=== PATIENT | female | born 1930 | race Caucasian/White ===

== ENCOUNTER 2017-04-15 12:29 | Inpatient (IN) | payer MEDICARE, BC ==
[~2017-04-15] VITALS: Ht 167.6 cm; Wt 70.0 kg
[2017-04-15] VITALS (7 sets, daily range): BP systolic 118–171; BP diastolic 60–91; PULSE 88–106; RESP 15–23; TEMP 97.3–98.1; O2SAT 84–95
[2017-04-15] MEDS ORDERED: diphenhydrAMINE HCL 50 MG/ML VIAL IVP ONE (13:00)
[2017-04-15] MEDS ORDERED: methylPREDNISolone SOD SUCC 125 MG/2 ML VIAL IV PUSH ONE (13:00)
[2017-04-15] MEDS ORDERED: FAMOTIDINE 20 MG/2 ML VIAL IV PUSH ONE (13:00)
[2017-04-15] MEDS ORDERED: SODIUM CHLORIDE 0.9% FLUSH 10 ML FLUSH IV FLUSH PRN ×2 (13:00→14:45)
[2017-04-15] MEDS ORDERED: BENA40TA PO (13:05)
[2017-04-15] MEDS ORDERED: ASPI81CH CHEW (13:05)
[2017-04-15] MEDS ORDERED: ACTO15TA11 PO (13:05)
[2017-04-15] MEDS ORDERED: CALC1TAB87 PO (13:11)
[2017-04-15] MEDS ORDERED: HYDR12.57 PO (13:11)
[2017-04-15] MEDS ORDERED: MULTTAB67 PO (13:11)
[2017-04-15] MEDS ORDERED: LIPI20TA PO (13:11)
[2017-04-15] MEDS ORDERED: OCUVTAB4 PO (13:11)
[2017-04-15] MEDS ORDERED: VITA250C3 CHEW (13:11)
[2017-04-15] MEDS ORDERED: SODIUM CHLORIDE 0.9% FLUSH 10 ML FLUSH IVF PRN (13:15)
[2017-04-15] MEDS ORDERED: EPINEPHrine HCL (1:1000) 1 MG/ML VIAL IM ONE (13:15)
[2017-04-15 13:30] LABS: AUTOMATED NEUTROPHIL # 3.3 TH/MM3 (1.8-7.7); BASOPHIL % 0.3 % (0.0-2.0); EOSINOPHIL % 0.4 % (0.0-4.0); HEMATOCRIT 48.7 % (35.0-46.0); HEMO FLAGS DIFF FINAL; LYMPH % 34.9 % (9.0-44.0); MEAN CELL VOLUME 96.7 FL (80.0-100.0); MEAN CORPUSCULAR HEMOGLOBIN 32.2 PG (27.0-34.0); MEAN CORPUSCULAR HGB CONC 33.3 % (32.0-36.0); MONO % 7.2 % (0.0-8.0); NEUT % 57.2 % (16.0-70.0); PLATELET COUNT 225 TH/MM3 (150-450); RED BLOOD COUNT 5.03 MIL/MM3 (4.00-5.30); RED CELL DISTRIBUTION WIDTH 13.4 % (11.6-17.2); WHITE BLOOD COUNT 5.7 TH/MM3 (4.0-11.0)
[2017-04-15 13:47] LABS: BICARBONATE 25.8 MEQ/L (21.0-32.0); POTASSIUM 3.2 MEQ/L (3.5-5.1)
[2017-04-15 13:49] LABS: MAGNESIUM 2.3 MG/DL (1.5-2.5)
[2017-04-15 13:51] LABS: CREATINE KINASE 131 U/L (26-192)
[2017-04-15 13:55] LABS: APTT (PATIENT) 21.9 SEC (24.3-30.1)
--- NOTE | 2017-04-15 14:11 | RADRPT ---
EXAM DATE/TIME: 04/15/2017 13:31 [place] COMPARISON: No previous studies available for comparison. INDICATIONS : Palpitations, syncopal episode at the eye doctor, short of breath. MEDICAL HISTORY : None. SURGICAL HISTORY : None. ENCOUNTER: Initial ACUITY: 1 day PAIN SCORE: 0/10 LOCATION: Bilateral chest FINDINGS: Mild prominence of the right hilum. Minimal volume loss at the left lung base with minimal associated airspace disease. Cardiomediastinal contours are otherwise unremarkable. Bony thorax is intact. CONCLUSION: 1. Mild right hilar prominence which may be due to prominent vessels. Further evaluation may be perfo rmed with CT exam as clinically indicated. 2. Minimal left lower lobe atelectasis. Osmar Whitmore MD on April 15, 2017 at 14:08 Board Certified Radiologist. This report was verified electronically.
[2017-04-15] MEDS ORDERED: SODIUM CHLORID 0.9% 500 ML INJ 500 ML IV ONE (14:15)
--- NOTE | 2017-04-15 14:40 | PD ---
HPI Chief Complaint: Allergic/Adverse Reaction Time Seen by Provider: 12:46 Travel History International Travel<30 days: No Contact w/Intl Traveler<30days: No Traveled to known affect area: No History of Present Illness HPI 86-year-old female presents with difficulty breathing and swelling to her tongue and lips after given fluroscein IV to evaluate her macular degeneration her daughter states. She's had it once before and developed chest pain but not this severe reaction. Today she also in the office had a syncopal event after given the medication. Patient denies any other concurrent complaints at this time. She was given no medication by the ambulance team but was hypoxic. Patient denies other specific complaints but history is limited given speech difficulty with tongue swelling. PFSH Past Medical History High Cholesterol: Yes Cerebrovascular Accident: Yes (CVA) Diabetes: Yes Patient Takes Glucophage: No Hypertension: Yes Influenza Vaccination: No Past Surgical History Cholecystectomy: Yes Tonsillectomy: Yes Social History Alcohol Use: Yes (wine daily) Tobacco Use: No Substance Use: No Allergies-Medications (Allergen,Severity, Reaction): Uncoded Allergies: florescein (Allergy, Severe, Anaphylaxis, 04/15/17) Reported Meds & Prescriptions Reported Meds & Active Scripts Active Reported Preservision Areds (Multiple Vitamins W/ Minerals) 1 Tab 1 Tab PO DAILY Multiple Vitamin 1 Tab 1 Tab PO DAILY Vitamin C (Ascorbic Acid) 250 Mg Chew 500 Mg CHEW DAILY Calcium 600 with Vitamin D (Calcium Carbonate-Cholecalciferol) 600-400 mg-Unit Tab 1 Tab PO DAILY Hydrochlorothiazide 12.5 Mg Cap 12.5 Mg PO DAILY Lipitor (Atorvastatin Calcium) 20 Mg Tab 20 Mg PO HS Benazepril (Benazepril HCl) 40 Mg Tab 40 Mg PO DAILY Aspirin 81 Mg Chew 81 Mg CHEW DAILY Actos (Pioglitazone HCl) 15 Mg Tab 15 Mg PO DAILY Review of Systems ROS Limitations: Speech Impaired Physical Exam Narrative GENERAL: Well-nourished, well-developed patient. SKIN: Warm and dry. HEAD: Normocephalic and atraumatic. EYES: No injection or drainage. ENT: No nasal drainage noted. Mild uvula edema, swelling noted to tongue and lips NECK: Supple, trachea midline. CARDIOVASCULAR: Regular rate and rhythm RESPIRATORY: Breath sounds equal bilaterally. No accessory muscle use. GASTROINTESTINAL: Abdomen soft, non-tender, nondistended. EXTREMITIES: No edema. NEUROLOGICAL: Awake and alert. Motor and sensory grossly within normal limits. Speech affected by tongue swelling Data Data Last Documented VS Vital Signs Date Time Temp Pulse Resp B/P (MAP) Pulse Ox O2 Delivery O2 Flow Rate FiO2 04/15/17 13:48 97 19 134/63 (86) 94 Nasal Cannula 3.00 04/15/17 12:45 97.3 Orders Orders Basic Metabolic Panel (Bmp) (04/15/17 12:46) Complete Blood Count With Diff (04/15/17 12:46) Ecg Monitoring (04/15/17 12:46) Iv Access Insert/Monitor (04/15/17 12:46) Oximetry (04/15/17 12:46) Methylprednisolone So Succ Inj (Solumedr (04/15/17 13:00) Famotidine Inj (Pepcid Inj) (04/15/17 13:00) Sodium Chloride 0.9% Flush (Ns Flush) (04/15/17 13:00) Diphenhydramine Inj (Benadryl Inj) (04/15/17 13:00) Epinephrine (1:1000) Inj (Adrenalin (1:1 (04/15/17 13:15) Electrocardiogram (04/15/17 13:12) Magnesium (Mg) (04/15/17 13:12) Ckmb (Isoenzyme) Profile (04/15/17 13:12) Troponin I (04/15/17 13:12) Act Partial Throm Time (Ptt) (04/15/17 13:12) Prothrombin Time / Inr (Pt) (04/15/17 13:12) Chest, Single Ap (04/15/17 13:12) Sodium Chloride 0.9% Flush (Ns Flush) (04/15/17 13:15) CKMB (04/15/17 13:10) CKMB% (04/15/17 13:10) Sodium Chlorid 0.9% 500 Ml Inj (Ns 500 M (04/15/17 14:15) Admit Order (Ed Use Only) (04/15/17 14:41) Admit To Inpatient (04/15/17 ) Vital Signs (Adult) Q4H (04/15/17 14:40) Activity Oob With Assistance (04/15/17 14:40) Roto Mixer Operator / Telemetry .CONTINUOUS (04/15/17 14:40) Intake + Output ANDRES.QSHIFT (04/15/17 14:40) Diet Npo (04/15/17 Dinner) Sodium Chlor 0.45% 1000 Ml Inj (1/2 Ns 1 (04/15/17 14:40) Sodium Chloride 0.9% Flush (Ns Flush) (04/15/17 14:45) Sodium Chloride 0.9% Flush (Ns Flush) (04/15/17 21:00) Acetaminophen (Tylenol) (04/15/17 14:45) Ondansetron Inj (Zofran Inj) (04/15/17 14:45) Scd Bilateral/Knee High ANDRES.BID (04/15/17 14:40) Naloxone Inj (Narcan Inj) (04/15/17 14:45) Docusate Sodium-Senna (Stephania-Colace) (04/15/17 21:00) Magnesium Hydroxide Liq (Milk Of Magnesi (04/15/17 14:45) Sennosides (Senokot) (04/15/17 14:45) Bisacodyl Supp (Dulcolax Supp) (04/15/17 14:45) Lactulose Liq (Lactulose Liq) (04/15/17 14:45) Inpatient Certification (04/15/17 ) Labs Laboratory Tests Test 04/15/17 13:10 White Blood Count 5.7 TH/MM3 Red Blood Count 5.03 MIL/MM3 Hemoglobin 16.2 GM/DL Hematocrit 48.7 % Mean Corpuscular Volume 96.7 FL Mean Corpuscular Hemoglobin 32.2 PG Mean Corpuscular Hemoglobin Concent 33.3 % Red Cell Distribution Width 13.4 % Platelet Count 225 TH/MM3 Mean Platelet Volume 8.6 FL Neutrophils (%) (Auto) 57.2 % Lymphocytes (%) (Auto) 34.9 % Monocytes (%) (Auto) 7.2 % Eosinophils (%) (Auto) 0.4 % Basophils (%) (Auto) 0.3 % Neutrophils # (Auto) 3.3 TH/MM3 Lymphocytes # (Auto) 2.0 TH/MM3 Monocytes # (Auto) 0.4 TH/MM3 Eosinophils # (Auto) 0.0 TH/MM3 Basophils # (Auto) 0.0 TH/MM3 CBC Comment DIFF FINAL Differential Comment Prothrombin Time 11.0 SEC Prothromb Time International Ratio 1.0 RATIO Activated Partial Thromboplast Time 21.9 SEC Blood Urea Nitrogen 19 MG/DL Creatinine 1.31 MG/DL Random Glucose 331 MG/DL Calcium Level 9.0 MG/DL Sodium Level 133 MEQ/L Potassium Level 3.2 MEQ/L Chloride Level 97 MEQ/L Carbon Dioxide Level 25.8 MEQ/L Anion Gap 10 MEQ/L Estimat Glomerular Filtration Rate 39 ML/MIN Magnesium Level 2.3 MG/DL Total Creatine Kinase 131 U/L Creatine Kinase MB 1.0 NG/ML Troponin I LESS THAN 0.02 NG/ML MDM Medical Decision Making Medical Screen Exam Complete: Yes Emergency Medical Condition: Yes Medical Record Reviewed: Yes (past history confirmed) Interpretation(s) CBC & BMP Diagram 04/15/17 13:10 Calcium Level 9.0 Last 24 hours Impressions Chest X-Ray 04/15/17 1312 Signed Impressions: Service Date/Time: Saturday, April 15, 2017 13:31 - CONCLUSION: 1. Mild right hilar prominence which may be due to prominent vessels. Further evaluation may be performed with CT exam as clinically indicated. 2. Minimal left lower lobe atelectasis. Osmar Whitmore MD Differential Diagnosis Anaphylaxis, medication effect, vasovagal, anemia, cardiac Narrative Course Will check blood work, chest x-ray and dose with Solu-Medrol, Benadryl, Pepcid and given extent of reaction epinephrine On recheck patient swelling to her lips and tongue has improved some but she will need to be monitored as she is still requiring oxygen. Patient is in agreement to this plan. We'll monitor closely in the ICU Physician Communication Physician Communication dr fish agrees to admit Diagnosis Primary Impression: Anaphylaxis Qualified Codes: T78.2XXA - Anaphylactic shock, unspecified, initial encounter Additional Impression: Syncope Admitting Information Admitting Physician Requests: Admit Melonie Salazar MD Apr 15, 2017 14:40
[2017-04-15] MEDS ORDERED: SENNOSIDES 8.6 MG TAB PO PRN (14:45)
[2017-04-15] MEDS ORDERED: ACETAMINOPHEN 325 MG TAB PO PRN (14:45)
[2017-04-15] MEDS ORDERED: NALOXONE HCL 0.4 MG/ML AMP IV PUSH PRN (14:45)
[2017-04-15] MEDS ORDERED: BISACODYL 10 MG SUPP RECTAL PRN (14:45)
[2017-04-15] MEDS ORDERED: ONDANSETRON HCL 4 MG/2 ML VIAL IVP PRN (14:45)
[2017-04-15] MEDS ORDERED: LACTULOSE SYRUP 20 GM/30 ML CUP PO PRN (14:45)
[2017-04-15] MEDS ORDERED: MAGNESIUM HYDROXIDE SUSP 30 ML CUP PO PRN (14:45)
--- NOTE | 2017-04-15 15:07 | HHI.HP ---
[facility] Primary [facility] Physician Unknown Admission Diagnosis anaphylaxis Diagnoses: Chief Complaint: Anaphylactic reaction and angioedema Travel History International Travel<30 Days: No Contact w/Intl Traveler <30 Da: No Traveled to Known Affected Are: No History of Present Illness This is a pleasant 86-year-old female past medical history hypertension, type 2 diabetes, and macular degenerative disorder who presented with allergic reaction. Patient stated that she had IV dye with florescein done at her [employer] office and she had a severe reaction to it. Her daughter is at the bedside during the interview stated that patient was unconscious and had severe swelling all over. EMS was called. Patient was seen in emergency department due to severe anaphylaxis and angioedema was given epinephrine, Solu- Medrol, Pepcid, Benadryl with improvement in her angioedema. Patient states she still feels short of breath and chest tightness as if she could not breathe. Otherwise she has no other complaints. Her daughter is at the bedside during the interview. All other review of system reviewed and negative. Past Family Social History Past Medical History Hypertension Hyperlipidemia Type 2 diabetes Mild CVA macular degenerative disorder Past Surgical History Cholecystectomy Tonsillectomy Reported Medications Preservision Areds (Multiple Vitamins W/ Minerals) 1 Tab 1 Tab PO DAILY Multiple Vitamin 1 Tab 1 Tab PO DAILY Vitamin C (Ascorbic Acid) 250 Mg Chew 500 Mg CHEW DAILY Calcium 600 with Vitamin D (Calcium Carbonate-Cholecalciferol) 600-400 mg-Unit Tab 1 Tab PO DAILY Hydrochlorothiazide 12.5 Mg Cap 12.5 Mg PO DAILY Lipitor (Atorvastatin Calcium) 20 Mg Tab 20 Mg PO HS Benazepril (Benazepril HCl) 40 Mg Tab 40 Mg PO DAILY Aspirin 81 Mg Chew 81 Mg CHEW DAILY Actos (Pioglitazone HCl) 15 Mg Tab 15 Mg PO DAILY Allergies: Uncoded Allergies: florescein (Allergy, Severe, Anaphylaxis, 04/15/17) Active Ordered Medications Current Medications Methylprednisolone Sodium Succinate (SoluMEDROL INJ) 125 mg ONCE ONCE IV PUSH Last administered on 04/15/17t 13:00; Start 04/15/17 at 13:00; Stop 04/15/17 at 13:01; Status DC Famotidine (Pepcid Inj) 20 mg ONCE ONCE IV PUSH Last administered on 13:00; Start 04/15/17 at 13:00; Stop 04/15/17 at 13:01; Status DC Sodium Chloride (NS Flush) 2 ml UNSCH PRN IV FLUSH FLUSH AFTER USING IV ACCESS ; Start 04/15/17 at 13:00; Stop 04/15/17 at 14:49; Status DC Diphenhydramine HCl (Benadryl Inj) 25 mg ONCE ONCE IVP Last administered on 13:00; Start 04/15/17 at 13:00; Stop 04/15/17 at 13:01; Status DC Epinephrine HCl (Adrenalin (1:1000) Inj) 0.3 mg ONCE ONCE IM Last administered on 04/15/17 13:09; Start 04/15/17 at 13:15; Stop 04/15/17 at 13 :19; Status DC Sodium Chloride (NS Flush) 2 ml UNSCH PRN IVF FLUSH AFTER USING IV ACCESS; Start 04/15/17 at 13:15; Stop 04/15/17 at 14:49; Status DC Sodium Chloride 500 ml @ 500 mls/hr BOLUS ONCE IV ; Start 04/15/17 at 14:15; Stop 04/15/17 at 15:14 Sodium Chloride 1,000 ml @ 75 mls/hr [id number] IV ; Start 04/15/17 at 14:40 Sodium Chloride (NS Flush) 2 ml UNSCH PRN IV FLUSH FLUSH AFTER USING IV ACCESS ; Start 04/15/17 at 14:45 Sodium Chloride (NS Flush) 2 ml BID IV FLUSH ; Start 04/15/17 at 21:00 Acetaminophen (Tylenol) 650 mg Q4H PRN PO TEMP > 100.4; Start 04/15/17 at 14: 45 Ondansetron HCl (Zofran Inj) 4 mg Q6H PRN IVP NAUSEA OR VOMITING; Start at 14:45 Naloxone HCl (Narcan Inj) 0.4 mg UNSCH PRN IV PUSH SEE LABEL COMMENTS; Start 04/15/17 at 14:45 Senna/Docusate Sodium (Stephania-Colace) 1 tab BID PO ; Start 04/15/17 at 21:00 Magnesium Hydroxide (Milk Of Magnesia Liq) 30 ml Q12H PRN PO MILD - MODERATE CONSTIPATION; Start 04/15/17 at 14:45 Sennosides (Senokot) 17.2 mg Q12H PRN PO MODERATE - SEVERE CONSTIPATION; Start 04/15/17 at 14:45 Bisacodyl (Dulcolax Supp) 10 mg DAILY PRN RECTAL SEVERE CONSITIPATION; Start 04/15/17 at 14:45 Lactulose (Lactulose Liq) 30 ml DAILY PRN PO SEVERE CONSITIPATION; Start 04/15 at 14:45 Methylprednisolone Sodium Succinate (SoluMEDROL INJ) 40 mg Q6HR IV PUSH ; Start 04/15/17 at 18:00 Diphenhydramine HCl (Benadryl Inj) 25 mg Q8HR IV PUSH ; Start 04/15/17 at 22:00 Famotidine (Pepcid Inj) 20 mg Q12H IV PUSH ; Start 04/16/17 at 01:00 Family History Denying past family history. Social History Patient recently moved here to [place]. Stop smoking 40 years ago. Drinks 1-2 glasses of wine every day. Physical Exam Vital Signs Vital Signs Date Time Temp Pulse Resp B/P (MAP) Pulse Ox O2 Delivery O2 Flow Rate FiO2 04/15/17 13:48 97 19 134/63 (86) 94 Nasal Cannula 3.00 04/15/17 13:09 94 132/76 04/15/17 13:01 17 95 Nasal Cannula 3.00 04/15/17 12:45 97.3 106 20 118/69 (85) 84 Room Air Physical Exam GENERAL: This is a well-nourished, well-developed patient, in mild respiratory apparent distress. SKIN: Forehead shows erythematous rash. Otherwise no other rash noted. She does have swelling of her lips and tongue but this is not obstructing her airway. HEAD: Atraumatic. Normocephalic. No temporal or scalp tenderness. EYES: Pupils equal round and reactive. Extraocular motions intact. No scleral icterus. No injection or drainage. ENT: Nose without bleeding, purulent drainage or septal hematoma. Throat without erythema, tonsillar hypertrophy or exudate. Uvula midline. Airway patent. NECK: Trachea midline. No JVD or lymphadenopathy. Supple, nontender, no meningeal signs. CARDIOVASCULAR: Regular rate and rhythm without murmurs, gallops, or rubs. RESPIRATORY: Clear to auscultation. Breath sounds equal bilaterally. No wheezes , rales, or rhonchi. GASTROINTESTINAL: Abdomen soft, non-tender, nondistended. No hepato-splenomegaly , or palpable masses. No guarding. MUSCULOSKELETAL: Extremities without clubbing, cyanosis, or edema. No joint tenderness, effusion, or edema noted. No calf tenderness. Negative Homans sign bilaterally. NEUROLOGICAL: Awake and alert. Cranial nerves II through XII intact. Motor and sensory grossly within normal limits. Five out of 5 muscle strength in all muscle groups. Normal speech. Laboratory Laboratory Tests Test 04/15/17 13:10 White Blood Count 5.7 Red Blood Count 5.03 Hemoglobin 16.2 Hematocrit 48.7 Mean Corpuscular Volume 96.7 Mean Corpuscular Hemoglobin 32.2 Mean Corpuscular Hemoglobin Concent 33.3 Red Cell Distribution Width 13.4 Platelet Count 225 Mean Platelet Volume 8.6 Neutrophils (%) (Auto) 57.2 Lymphocytes (%) (Auto) 34.9 Monocytes (%) (Auto) 7.2 Eosinophils (%) (Auto) 0.4 Basophils (%) (Auto) 0.3 Neutrophils # (Auto) 3.3 Lymphocytes # (Auto) 2.0 Monocytes # (Auto) 0.4 Eosinophils # (Auto) 0.0 Basophils # (Auto) 0.0 CBC Comment DIFF FINAL Differential Comment Prothrombin Time 11.0 Prothromb Time International Ratio 1.0 Activated Partial Thromboplast Time 21.9 Blood Urea Nitrogen 19 Creatinine 1.31 Random Glucose 331 Calcium Level 9.0 Sodium Level 133 Potassium Level 3.2 Chloride Level 97 Carbon Dioxide Level 25.8 Anion Gap 10 Estimat Glomerular Filtration Rate 39 Magnesium Level 2.3 Total Creatine Kinase 131 Creatine Kinase MB 1.0 Troponin I LESS THAN 0.02 Result Diagram: 04/15/17 1310 04/15/171309 Imaging Last Impressions Chest X-Ray 04/15/171311 Signed Impressions: Service Date/Time: Saturday, April 15, 2017 13:31 - CONCLUSION: 1. Mild right hilar prominence which may be due to prominent vessels. Further evaluation may be performed with CT exam as clinically indicated. 2. Minimal left lower lobe atelectasis. MD Isa Mena VTE Risk Assessment Caprini VTE Risk Assessment: Mod/High Risk (score >= 2) Caprini Risk Assessment Model Point Value = 1 Point Value = 2 Point Value = 3 Point Value = 5 Age 41-60 Minor surgery BMI > 25 kg/m2 Swollen legs Varicose veins or History of unexplained or recurrent spontaneous Oral contraceptives or hormone replacement Sepsis (< 1 month) Serious lung disease, including pneumonia (< 1 month) Abnormal pulmonary function Acute myocardial infarction Congestive heart failure (< 1 month) History of inflammatory bowel disease Medical patient at bed rest Age 61-74 Arthroscopic surgery Major open surgery (> 45 min) Laparoscopic surgery (> 45 min) Malignancy Confined to bed (> 72 hours) Immobilizing plaster cast Central venous access Age >= 75 History of VTE Family history of VTE Factor V Leiden Prothrombin [id number] Lupus anticoagulant Anticardiolipin antibodies Elevated serum homocysteine Heparin-induced thrombocytopenia Other congenital or acquired thrombophilia Stroke (< 1 month) Elective arthroplasty Hip, pelvis, or leg fracture Acute spinal cord injury (< 1 month) Prophylaxis Regimen Total Risk Factor Score Risk Level Prophylaxis Regimen 0-1 Low Early ambulation 2 Moderate Order ONE of the following: *Sequential Compression Device (SCD) *Heparin 5000 units SQ BID 3-4 Higher Order ONE of the following medications: *Heparin 5000 units SQ TID *Enoxaparin/Lovenox 40 mg SQ daily (WT < 150 kg, CrCl > 30 mL/min) *Enoxaparin/Lovenox 30 mg SQ daily (WT < 150 kg, CrCl > 10-29 mL/min) *Enoxaparin/Lovenox 30 mg SQ BID (WT < 150 kg, CrCl > 30 mL/min) AND/OR *Sequential Compression Device (SCD) 5 or more Highest Order ONE of the following medications: *Heparin 5000 units SQ TID (Preferred with Epidurals) *Enoxaparin/Lovenox 40 mg SQ daily (WT < 150 kg, CrCl > 30 mL/min) *Enoxaparin/Lovenox 30 mg SQ daily (WT < 150 kg, CrCl > 10-29 mL/min) *Enoxaparin/Lovenox 30 mg SQ BID (WT < 150 kg, CrCl > 30 mL/min) AND *Sequential Compression Device (SCD) Assessment and Plan Assessment and Plan 86-year-old female who presented with Anaphylaxis/angioedema -Due to Florescein dye. Patient was educated to never come in contact with the dye. -With Solu-Medrol, epinephrine, Pepcid and Benadryl. -Due to the severity of the reaction patient will need to be monitored in the intensive care unit. -Continue with Solu-Medrol, Pepcid and Benadryl. Epinephrine when necessary. -Will need to closely monitor for any airway compromise. Acute respiratory failure with hypoxia secondary to angioedema -See treatment as above. Hypertension/hyperlipidemia/history of CVA -Due to swelling of her throat will hold any oral medication due to concern for aspiration. Will allow aspirin. Otherwise can give when necessary IV medication. Type 2 diabetes -Will hold oral antihyperglycemic medication. Will start patient on insulin sliding scope. Mild renal insufficiency -Unsure patient's baseline. This maybe her baseline. no comparison. Cr 1.33 -will continue to monitor. Avoid nephrotoxins. DVT prophylaxis -SCDs. Discussed Condition With Patient and her daughter. Physician Certification 2 Midnight Certification Type: Admission for Inpatient Services Order for Inpatient Services The services are ordered in accordance with Medicare regulations or non- Medicare payer requirements, as applicable. In the case of services not specified as inpatient-only, they are appropriately provided as inpatient services in accordance with the 2-midnight benchmark. Estimated LOS (days): 2 2 days is the estimated time the patient will need to remain in the hospital, assuming treatment plan goals are met and no additional complications. Post-Hospital Plan: Fanny Lemons MD Apr 15, 2017 15:07
[2017-04-15] MEDS ORDERED: DEXTROSE 50% IN WATER 50 ML VIAL(D50) IV PUSH PRN ×2 (15:30→16:45)
[2017-04-15] MEDS ORDERED: GLUCAGON 1 MG/ML VIAL OTHER PRN ×2 (15:30→16:45)
[2017-04-15] MEDS: methylPREDNISolone SOD SUCC 40 MG/1 ML VIAL IV PUSH SCH ×2 (16:56→20:54)
[2017-04-15] MEDS: SODIUM CHLOR 0.45% 1000 ML INJ 1,000 ML IV SCH (16:56)
[2017-04-15] MEDS: ASPIRIN 81 MG CHEW TAB CHEW SCH (16:56)
[2017-04-15] MEDS: INSULIN ASPART SUPPLEMENTAL SCALE SQ SCH ×2 (17:46→20:54)
[2017-04-15] MEDS ORDERED: methylPREDNISolone SOD SUCC 40 MG/1 ML VIAL IV PUSH SCH (18:00)
[2017-04-15] MEDS ORDERED: CHLORHEXIDINE GLUCONATE 2 % 1 PACK (2 CLOTHS)(extra cloths) TOPICAL PRN (19:00)
[2017-04-15] MEDS: DOCUSATE SODIUM 50 MG/SENNA 8.6 MG TAB PO SCH ×2 (19:42→20:11)
[2017-04-15] MEDS: SODIUM CHLORIDE 0.9% FLUSH 10 ML FLUSH IV FLUSH SCH (20:11)
[2017-04-15] MEDS: diphenhydrAMINE HCL 50 MG/ML VIAL IV PUSH SCH (20:54)
[2017-04-16] VITALS (7 sets, daily range): BP systolic 102–185; BP diastolic 56–92; PULSE 82–103; RESP 14–20; TEMP 97.9–98.3; O2SAT 92–96
[2017-04-16] MEDS: FAMOTIDINE 20 MG/2 ML VIAL IV PUSH SCH ×2 (00:02→13:00)
[2017-04-16] MEDS ORDERED: CHLORHEXIDINE GLUCONATE 2 % 1 PACK (2 CLOTHS)(taper/protocol) TOPICAL SCH (04:00)
[2017-04-16] MEDS: SODIUM CHLOR 0.45% 1000 ML INJ 1,000 ML IV SCH (04:13)
[2017-04-16] MEDS: diphenhydrAMINE HCL 50 MG/ML VIAL IV PUSH SCH (04:13)
[2017-04-16] MEDS: methylPREDNISolone SOD SUCC 40 MG/1 ML VIAL IV PUSH SCH ×2 (04:13→11:51)
[2017-04-16] MEDS: INSULIN ASPART SUPPLEMENTAL SCALE SQ SCH ×2 (08:00→12:00)
[2017-04-16] MEDS: DOCUSATE SODIUM 50 MG/SENNA 8.6 MG TAB PO SCH (08:36)
[2017-04-16] MEDS: ASPIRIN 81 MG CHEW TAB CHEW SCH (08:37)
[2017-04-16] MEDS: SODIUM CHLORIDE 0.9% FLUSH 10 ML FLUSH IV FLUSH SCH (08:37)
[2017-04-16] MEDS ORDERED: PRED20 PO (09:34)
[2017-04-16] MEDS ORDERED: BENA25TA6 PO (09:34)
[2017-04-16] MEDS ORDERED: FAMO1TAB37 PO (09:34)
[2017-04-16] MEDS ORDERED: EPIP0.3I SQ (09:34)
[2017-04-16] MEDS ORDERED: hydrALAZINE HCL 20 MG/ML VIAL IV PUSH ONE (11:30)
[2017-04-16 12:15] LABS: BICARBONATE 24.9 MEQ/L (21.0-32.0); POTASSIUM 3.5 MEQ/L (3.5-5.1)
--- NOTE | 2017-04-16 12:28 | HHI.DCPOC ---
Discharge Care Plan Diagnosis: (1) Anaphylaxis Goals to Promote Your Health * To prevent worsening of your condition and complications * To maintain your health at the optimal level Directions to Meet Your Goals Take your medications as prescribed Follow your dietary instruction Follow activity as directed Keep your appointments as scheduled Take your immunizations and boosters as scheduled If your symptoms worsen call your PCP, if no PCP go to Urgent Care Center or Emergency Room Smoking is Dangerous to Your Health. Avoid second hand smoke Call the 24-hour hour crisis hotline for domestic abuse at Fanny He MD Apr 16, 2017 12:28
--- NOTE | 2017-04-16 12:28 | HHI.DS ---
Discharge Summary Admission Date Apr 15, 2017 at 14:44 Discharge Date: Apr 16, 2017 Admitting Diagnosis anaphylaxis (1) Anaphylactic reaction ICD Code: T78.2XXA - Anaphylactic shock, unspecified, initial encounter Diagnosis: Principal (2) Angio-edema ICD Code: T78.3XXA - Angioneurotic edema, initial encounter Diagnosis: Principal Procedures See hospital course. Brief History - From Admission This is a pleasant 86-year-old female past medical history hypertension, type 2 diabetes, and macular degenerative disorder who presented with allergic reaction. Patient stated that she had IV dye with florescein done at her [employer] office and she had a severe reaction to it. Her daughter is at the bedside during the interview stated that patient was unconscious and had severe swelling all over. EMS was called. Patient was seen in emergency department due to severe anaphylaxis and angioedema was given epinephrine, Solu- Medrol, Pepcid, Benadryl with improvement in her angioedema. Patient states she still feels short of breath and chest tightness as if she could not breathe. Otherwise she has no other complaints. Her daughter is at the bedside during the interview. All other review of system reviewed and negative. CBC/BMP: 04/15/17 1310 04/16/17 1053 Significant Findings Laboratory Tests Test 04/15/17 13:10 04/15/17 18:13 04/16/17 10:53 Hemoglobin 16.2 GM/DL (11.6-15.3) Hematocrit 48.7 % (35.0-46.0) Activated Partial Thromboplast Time 21.9 SEC (24.3-30.1) Blood Urea Nitrogen 19 MG/DL (7-18) 19 MG/DL (7-18) Creatinine 1.31 MG/DL (0.50-1.00) 1.14 MG/DL (0.50-1.00) Random Glucose 331 MG/DL (74-106) 249 MG/DL (74-106) Sodium Level 133 MEQ/L (136-145) 135 MEQ/L (136-145) Potassium Level 3.2 MEQ/L (3.5-5.1) Chloride Level 97 MEQ/L (98-107) Estimat Glomerular Filtration Rate 39 ML/MIN (>89) 45 ML/MIN (>89) Troponin I LESS THAN 0.02 NG/ML Imaging Last Impressions Chest X-Ray 04/15/17 1312 Signed Impressions: Service Date/Time: Saturday, April 15, 2017 13:31 - CONCLUSION: 1. Mild right hilar prominence which may be due to prominent vessels. Further evaluation may be performed with CT exam as clinically indicated. 2. Minimal left lower lobe atelectasis. Osmar Whitmore MD PE at Discharge GENERAL: in NAD swelling resolved. SKIN: Warm and dry. HEAD: Normocephalic. EYES: No scleral icterus. No injection or drainage. NECK: Supple, trachea midline. No JVD or lymphadenopathy. CARDIOVASCULAR: Regular rate and rhythm without murmurs, gallops, or rubs. RESPIRATORY: Breath sounds equal bilaterally. No accessory muscle use. GASTROINTESTINAL: Abdomen soft, non-tender, nondistended. MUSCULOSKELETAL: No cyanosis, or edema. BACK: Nontender without obvious deformity. No CVA tenderness. Pt update on day of discharge Follow-up for anaphylactic reaction angioedema angioedema/swelling has all resolved. Patient stated that she is back to her baseline. She denies any shortness of breathing or difficulty swallowing. Patient is very anxious to go home. Continues to not have any rash. Discussed with patient's nurse. Hospital Course 86-year-old female who presented with Anaphylaxis/angioedema -Due to Florescein dye. Patient was educated to never come in contact with the dye. -Patient was put on Solu-Medrol, epinephrine, Pepcid and Benadryl with resolution of symptoms and will transition on oral medication upon discharge. -Extensive education was given on her diagnosis, treatment and management. Patient was also prescribed an EpiPen and extensive discussion was discussed on the use. Acute respiratory failure with hypoxia secondary to angioedema -Resolved quickly with treatment of anaphylactic reaction. Supplemental oxygen was given but she was weaned off quickly. Hypertension/hyperlipidemia/history of CVA -Due to swelling of her throat oral medication was held. When swelling resolved home medication resumed patient was tolerating oral intake before discharge. Type 2 diabetes - oral antihyperglycemic medication was held initially and she was started on insulin sliding scale. Mild renal insufficiency -Unsure patient's baseline. This maybe her baseline. no comparison. Cr 1.33 -Patient was given IV fluids. -Creatinine improved but patient was told to have her creatinine rechecked by her primary care physician within one week. I also encourage fluid intake. Pt Condition on Discharge: Stable Discharge Disposition: Discharge Home Discharge Time: > 30 minutes Discharge Instructions DIET: Follow Instructions for: Heart Healthy Diet Activities you can perform: Regular-No Restrictions Follow up Referrals: PCP Follow-up - 2-3 Days New Medications: Diphenhydramine HCl (Benadryl Allergy) 25 Mg Tablet 25 MG PO BID for allergic reaction, #14 TAB 0 Refills Epinephrine Inj (Epipen 2-Jayden Inj) 0.3 Mg/0.3 Ml Pfpen 0.3 MG SQ ONCE PRN for ALLERGIC REACTION, #1 PACK 0 Refills Famotidine (Pepcid) 20 Mg Tab 20 MG PO BID for Allergic Reaction, #14 TAB 0 Refills Prednisone (Prednisone) 20 Mg Tab 20 MG PO DIRECTED for Allergic Reaction, #15 TAB 0 Refills Take 40 MG daily x 3 days, then 30 MG x 3 days, then 20 MG daily x 3 days then 10 mg for 3 days. Continued Medications: Ascorbic Acid (Vitamin C) 250 Mg Chew 500 MG CHEW DAILY for Nutritional Supplement, #30 TAB 0 Refills Aspirin (Aspirin) 81 Mg Chew 81 MG CHEW DAILY, TAB 0 Refills Atorvastatin (Lipitor) 20 Mg Tab 20 MG PO HS for Cholesterol Management, #30 TAB 0 Refills Benazepril (Benazepril) 40 Mg Tab 40 MG PO DAILY for Blood Pressure Management, #30 TAB 0 Refills Calcium Carbonate-Cholecalciferol (Calcium 600 with Vitamin D) 600-400 mg-Unit Tab 1 TAB PO DAILY for Calcium Supplement, TAB 0 Refills Hydrochlorothiazide (Hydrochlorothiazide) 12.5 Mg Cap 12.5 MG PO DAILY, #30 CAP 0 Refills Multiple Vitamin (Multiple Vitamin) 1 Tab 1 TAB PO DAILY for Nutritional Supplement, TAB 0 Refills Multiple Vitamins W/ Minerals (Preservision Areds) 1 Tab 1 TAB PO DAILY for Nutritional Supplement, TAB 0 Refills Pioglitazone (Actos) 15 Mg Tab 15 MG PO DAILY for Blood Sugar Management, #30 TAB 0 Refills Fanny He MD Apr 16, 2017 12:28
--- NOTE | 2017-04-17 00:01 | EKG ---
Date Performed: 04/15/2017 Time Performed: 13:55:23 PTAGE: 86 years EKG: Sinus rhythm MINIMAL ST DEPRESSION BORDERLINE ECG NO PREVIOUS TRACING DOCTOR: Jamie Echavarria Interpretating Date/Time 04/17/2017 00:00:14
[2017-04-17] MEDS ORDERED: FAMOTIDINE 20 MG/2 ML VIAL IV PUSH SCH (01:00)
[2017-04-17] MEDS ORDERED: PNEUMOCOCCAL POLYVALENT INJ 25 MCG/0.5 ML SYR IM ONE (10:00)
[2017-04-17] MEDS ORDERED: INFLUENZA VIRUS VACCINE (QUADRIVALENT) 0.5 ML SYR IM ONE (10:00)
== END 2017-04-16 13:40 | disposition home or self-care (01) | DRG 915 ==
LOC: NEPC 12:29 → NEDA 14:44 → HIMN 18:25
PROVIDERS: ADMIT Family Medicine; ATTEND Family Medicine
DX: T88.6XXA Anaphylactic reaction due to adverse effect of correct drug or medicament properly administered, initial encounter (principal); J96.01 Acute respiratory failure with hypoxia; T78.3XXA Angioneurotic edema, initial encounter; T50.8X5A Adverse effect of diagnostic agents, initial encounter; Y84.8 Other medical procedures as the cause of abnormal reaction of the patient, or of later complication, without mention of misadventure at the time of the procedure; I10 Essential (primary) hypertension; E78.5 Hyperlipidemia, unspecified; Z86.73 Personal history of transient ischemic attack (TIA), and cerebral infarction without residual deficits; E11.9 Type 2 diabetes mellitus without complications; Z79.84 Long term (current) use of oral hypoglycemic drugs
CPT/HCPCS: 71010; 80048; 82550; 82552; 82948; 83735; 84484; 85025; 85610; 85730; 87641; 93005; 96372; 96374; 96375; J0171; J0360; J1200; J1815; J2920; J2930; J7040